=== PATIENT | female | born 1975 | race Caucasian/White ===

== ENCOUNTER 2019-01-24 21:15 | Emergency (ER) | payer OTHER ==
[2019-01-24] MEDS ORDERED: Zofran 4 MG/2 ML VIAL ONE (22:41)
[2019-01-24] MEDS ORDERED: MORPHINE SULFATE 4 MG INJ IV ONE (22:41)
[2019-01-24] MEDS ORDERED: Sodium Chloride 0.9% 1000 ML 1,000 ML IV STA (22:41)
[2019-01-24] MEDS ORDERED: Zosyn 3.375GM/100 Ml D5W 3.375 GM/100 ML IVPB IV ONE (22:41)
[2019-01-24] MEDS ORDERED: MORPHINE SULFATE 4 MG INJ ONE (22:41)
[2019-01-24] MEDS ORDERED: Zofran 4 MG/2 ML VIAL IV ONE (22:41)
[2019-01-24] MEDS ORDERED: Zosyn 3.375GM/100 Ml D5W 3.375 GM/100 ML IVPB IV STA (22:42)
[2019-01-24] MEDS ORDERED: XYLOCAINE 2% HCL 20 ML MDV IJ ONE (22:43)
--- NOTE | 2019-01-24 22:50 | ERPHSYRPT ---
- History of Present Illness Time Seen by Provider: 01/24/19 22:39 Source: patient Exam Limitations: clinical condition Patient Subjective Stated Complaint: pt reports an area she thought was possibly a bug bite to the right inner thigh. states she noticed it two weeks ago as a small lump. pt reports pain to the thigh as well. Triage Nursing Assessment: pt is aox3, pupils perrl, afebrile, resps easy and non labored, radial pulses strong and equal, cap refill < 3 secs, skin pink warm dry. a firm, red raised area noted to the right inguinal area, skin is hot to touch, redness radiates distally to the mid thigh, skin is intact, no drainage noted at this time. Physician History: PATIENT INITIALLY COMPLAINS OF A LOCALIZED SWELLING TO RIGHT UPPER INNER THIGH 2 WEEKS AGO AFTER INSECT BITE, NO NOW HAS STUART SWELLING PAINFUL WITH SURROUNDING REDNESS. DENIES FEVER OR CHILLS. ATTEMPTED TO DRAIN SWELLING BY EXPRESSING SWELLING. Timing/Duration: week(s) Quality: painful Severity: severe Location: extremities Possible Causes: insect bite Modifying Factors: Improves With: scratching Associated Symptoms: other (PAINFUL SWELLING) Allergies/Adverse Reactions: cephalexin [From Keflex] Allergy (Verified 01/24/19 22:50) Hx Tetanus, Diphtheria Vaccination/Date Given: No Hx Influenza Vaccination/Date Given: No Hx Pneumococcal Vaccination/Date Given: No Immunizations Up to Date: Yes - Review of Systems Constitutional: No Symptoms Cardiac: No Symptoms Musculoskeletal: Other (PAINFUL THIGH SWELLING) Skin: Cellulitis Neurological: No Symptoms Psychological: No Symptoms Endocrine: No Symptoms - Past Medical History Pertinent Past Medical History: Yes Other Medical History: irregular heart rate - not taking medications at this time - Past Surgical History Past Surgical History: Yes Female Surgical History: Tubal Ligation - Social History Smoking Status: Current every day smoker Drug Use: none Patient Lives Alone: No - Female History Hx Now: No - Nursing Vital Signs Nursing Vital Signs: Initial Vital Signs Temperature 99.7 F 01/24/19 22:22 Pulse Rate 110 H 01/24/19 22:22 Respiratory Rate 20 01/24/19 22:22 Blood Pressure 133/88 01/24/19 22:22 O2 Sat by Pulse Oximetry 97 01/24/19 22:22 Pain Scale Pain Intensity 10 - Physical Exam General Appearance: mild distress Neck Exam: normal inspection Respiratory Exam: normal breath sounds Cardiovascular Exam: regular rate/rhythm, normal heart sounds, tachycardia SpO2: 97 Procedures - Incision and Drainage Site: RIGHT PROXIMAL MEDIAL THIGH Anesthesia: 2% Lidocaine cc's of anesthesia: 4 Blade Size: 11 I & D Procedure: hibiclens prep Results: large amount pus (PACKING OF WOUND WITH 1/2 INCH STRIP GAUZE) Ordered Tests: Active Orders 24 hr Category Date Time Status BLOOD CULTURE Stat Lab 01/24/19 23:47 Received CBC W DIFF Stat Lab 01/24/19 23:47 Completed Medication Summary Generic Name Dose Route Start Last Admin Trade Name Freq PRN Reason Stop Dose Admin Sodium Chloride 1,000 mls @ 500 mls/hr 01/24/19 22:41 01/24/19 23:38 Sodium Chloride 0.9% 1000 Ml IV 01/25/19 00:40 Infused .Q2H STA Infusion Discontinued Medications Generic Name Dose Route Start Last Admin Trade Name Freq PRN Reason Stop Dose Admin Hydrocodone Bitart/Acetaminophen 2 tab 01/24/19 23:21 01/24/19 23:36 [place] 10/325 Mg Tablet PO 01/24/19 23:22 2 tab SENT HOME W/ PATIENT ONE Administration Hydrocodone Bitart/Acetaminophen Confirm 01/24/19 23:35 [place] 10/325 Mg Tablet Administered 01/24/19 23:36 Dose 2 tab .ROUTE .STK-MED ONE Piperacillin Sod/Tazobactam Sod 3.375 gm in 100 mls @ 200 mls/hr 01/24/19 22: 42 01/24/19 23:39 Zosyn 3.375gm/100 Ml D5w IV 01/24/19 23:11 Infused STAT STA Infusion Piperacillin Sod/Tazobactam Sod Confirm 01/24/19 22:41 Zosyn 3.375gm/100 Ml D5w Administered 01/24/19 22:42 Dose 3.375 gm in 100 mls @ ud IV .STK-MED ONE Sodium Chloride Confirm 01/24/19 22:51 Sodium Chloride 0.9% 1000 Ml Administered 01/24/19 22:52 Dose 1,000 mls @ ud .ROUTE .STK-MED ONE Lidocaine HCl 4 ml 01/24/19 22:43 01/24/19 23:06 Xylocaine 2% Hcl 20 Ml Mdv IJ 01/24/19 22:44 4 ml STAT ONE Administration Morphine Sulfate 4 mg 01/24/19 22:41 01/24/19 22:52 Morphine Sulfate 4 Mg Inj IV 01/24/19 22:42 4 mg STAT ONE Administration Morphine Sulfate Confirm 01/24/19 22:41 Morphine Sulfate 4 Mg Inj Administered 01/24/19 22:42 Dose 4 mg .ROUTE .STK-MED ONE Morphine Sulfate Confirm 01/24/19 23:08 Morphine Sulfate 10 Mg/Ml Administered 01/24/19 23:09 Dose 10 mg .ROUTE .STK-MED ONE Morphine Sulfate 6 mg 01/24/19 23:21 01/24/19 23:32 Morphine Sulfate 10 Mg/Ml IV 01/24/19 23:22 6 mg STAT ONE Administration Ondansetron HCl 4 mg 01/24/19 22:41 01/24/19 22:51 Zofran 4 Mg/2 Ml Vial IV 01/24/19 22:42 4 mg STAT ONE Administration Ondansetron HCl Confirm 01/24/19 22:41 Zofran 4 Mg/2 Ml Vial Administered 01/24/19 22:42 Dose 4 mg .ROUTE .STK-MED ONE Lab/Rad Data: Laboratory Result Diagrams 01/24/19 23:47 Laboratory Results 01/24/19 Range/Units 23:47 WBC 13.4 H (4.0-10.5) K/mm3 RBC 5.65 H (4.1-5.4) M/mm3 Hgb 15.8 (12.0-16.0) gm/dl Hct 47.5 H (35-47) % MCV 84.1 (78-100) fl MCH 27.9 (26-32) pg MCHC 33.3 (32-36) g/dl RDW 13.7 (11.5-14.0) % Plt Count 298 (150-450) K/mm3 MPV 10.6 H (6-9.5) fl Gran % 66.2 H (36.0-66.0) % Eos # (Auto) 0.15 (0-0.5) Absolute Lymphs (auto) 3.30 (1.0-4.6) Absolute Monos (auto) 1.03 (0.0-1.3) Lymphocytes % 24.7 (24.0-44.0) % Monocytes % 7.7 (0.0-12.0) % Eosinophils % 1.1 (0.00-5.0) % Basophils % 0.3 (0.0-0.4) % Absolute Granulocytes 8.83 H (1.4-6.9) Basophils # 0.04 (0-0.4) - Progress Counseled pt/family regarding: lab results, diagnosis - Departure Departure Disposition: Home Clinical Impression: INCISION DRAINAGE RIGHT THIGH ABSCESS Condition: Stable Critical Care Time: No Referrals: DOCTOR,NO FAMILY [Primary Care Provider] - Additional Instructions: NORCO 10/325 EVERY 6 HOURS NEEDED FOR PAIN. ANTIBIOTIC AUGMENTIN 875MG TWICE DAILY FOR 10 DAYS. BEGIN SITZ WARM BATH SOAKS 2-3 TIMES DAILY FOR 1 WEEK, DURATION OF 40 MINUTES. CONSULT YOUR PRIMARY CARE PROVIDER FOR FOLLOWUP IN 3-5 DAYS. REMOVE PACKING AFTER 3 DAYS. WATCH FOR INCREASING SIGNS OF INFECTION, REDNESS, STREAKS, FEVER OR CHILLS. Prescriptions: Hydrocodone/APAP 10/325 mg [[place] 10/325 MG Tablet] 1 tab PO Q6H PRN PRN # 12 tablet MDD 4 PRN Reason: Pain Amox Tr/Potass Clav. 875 mg [Augmentin 875-125 Tablet] 875 mg PO BID #20 tablet
[2019-01-24] MEDS ORDERED: Sodium Chloride 0.9% 1000 ML 1,000 ML ONE (22:51)
[2019-01-24] MEDS ORDERED: MORPHINE SULFATE 10 MG/ML ONE (23:08)
[2019-01-24] MEDS ORDERED: MORPHINE SULFATE 10 MG/ML IV ONE (23:21)
[2019-01-24] MEDS ORDERED: Norco 10/325 MG Tablet PO ONE (23:21)
[2019-01-24] MEDS ORDERED: Norco 10/325 MG Tablet ONE (23:35)
[2019-01-24 23:58] LABS: BASOPHIL % 0.3 % (0.0-0.4); Basophil (Absolute #) 0.04 (0-0.4); Eosinophil % 1.1 % (0.00-5.0); Eosinophil (Absolute #) 0.15 (0-0.5); Granulocyte Absolute (ANC) 8.83 (1.4-6.9); Granulocytes % 66.2 % (36.0-66.0); Hematocrit 47.5 % (35-47); Hemoglobin 15.8 gm/dl (12.0-16.0); Lymphocytes % 24.7 % (24.0-44.0); Mean Cell Volume 84.1 fl (78-100); Mean Corpuscular Hgb Concent. 33.3 g/dl (32-36); Mean Platelet Volume 10.6 fl (6-9.5); Monocyte (Absolute #) 1.03 (0.0-1.3); Monocytes % 7.7 % (0.0-12.0); Platelet Count 298 K/mm3 (150-450); Red Blood Count 5.65 M/mm3 (4.1-5.4); Red Cell Distribution Width 13.7 % (11.5-14.0); White Blood Count 13.4 K/mm3 (4.0-10.5)
[2019-01-25 00:05] LABS: Mean Corpuscular Hemoglobin 27.9 pg (26-32)
[2019-01-25 00:50] VITALS: BP 130/72; PULSE 90; O2SAT 98
== END 2019-01-25 00:48 | disposition home or self-care (01) ==
LOC: ED 21:15
DX: L02.415 Cutaneous abscess of right lower limb (principal)
CPT/HCPCS: 10060; 36415; 85025; 87040; 96372; 96374; 96375; 99284; J2270; J2405; J2543; A9270-GY